=== PATIENT | female | born 1995 | race Caucasian/White ===

== ENCOUNTER 2022-05-12 09:45 | Inpatient (IN) ==
[2022-05-12] MEDS ORDERED: OXYTOCIN 30 UNITS/500 ML BAG IV PRN ×2 (10:51)
[2022-05-12] MEDS ORDERED: LIDOCAINE 1% LOCAL 20 ML VIAL INFIL PRN (10:51)
--- NOTE | 2022-05-12 10:58 | History & Physical Report ---
Date of Service May 12, 2022 Assessment & Plan (1) SROM (spontaneous rupture of membranes): Plan: IOL with pitocin recommended, epidural discussed and will likely be requested by patient during her labor. BP noted with diastolic >90. No PIH symptoms at present, but has had mild shah within the last few days (didn't even want to take tylenol for it), and has +1 protein in urine (though this is likely d/t urine being mixed with amniotic fluid and vernix). Will check CMP along with intake labs to assess for preeclampsia and will watch for symptoms. Anticipate BP is likely related to excitement/discomfort rather than preeclampsia given overall clinical scenario and will not diagnose with any gHTN spectrum condition at this time. History of Present Illness Primary Care Provider: Elbert Lopez, DO 27yo at 40w with SROM at 2am, without any contractions. Trickle of red blood this AM while in shower, also noticing at that time she was feeling reduced FM. Called the o/c MD after that / at 8:45. Advised to come to L&D. Preg c/b Rh negative, did accept Rhogam. Declines all vaccines and declined optional /genetic testing. On presentation, continues with leakage, no ctx, minimal VB. SROM confirmed by nursing. FHT reassuring. Irregular ctx on toco that are mild and not bothering the patient. Exam /-1 soft posterior with clear LOF per this MD. Allergies Allergy/AdvReac Type Severity Reaction Status Date / Time caffeine Allergy Depression Verified 05/12/22 10:17 Home Medications Medication Instructions Recorded Confirmed Type prenat.vits,avelina,oly-iggt-qfeft 1 tab PO HS 05/12/22 05/12/22 History Past Med/Surg History Surgical History H/O hernia repair S/P wisdom tooth extraction Family History Grandmother (Maternal) Breast cancer Other Diabetes Social History (Updated 09/27/21 @ 09:50 by Magalie Yarbrough) Smoking Status: Never smoker Hx Alcohol Use: No Hx Substance Use: No Preferred Language: Syriac Communication Ability: Effective Visual Impairment: No Limitations Hearing Ability: Normal Licensed Tax Consultant Required: No Beliefs That Will Affect Care: None marital status: marital status details: Pancho (27) [phone] Current Living Situation: Spouse Current Living Situation Comment: lives with spouse, no pets. current occupational status: unemployed Other Information That Helps Us Care for You: No Feels Safe at Home: Yes Safety Concerns: Feels Safe At This Time Childhood Exposure to Second-Hand Smoke: No Dental Care, Regularly: Yes Physical Activity Frequency: Daily Seatbelt Use: always Sunscreen Use: Yes Assistive Devices: None Physical Exam Constitutional: WD/WN, vitals as above Eyes: PERRL, conjunctivae normal, anicteric sclerae ENMT: external ear and nose normal, oropharynx normal Neck: supple Respiratory: normal respiratory effort and able to speak in complete sentences; no respiratory distress Cardiovascular: Rate/Rhythm: regular rate and regular rhythm Gastrointestinal (Abdomen): Gravid / AGA, nontender Musculoskeletal: no cyanosis or clubbing, extremities motor strength 5/5 Skin: no rashes, warm and dry Psychiatric: A+Ox3, euthymic affect Genitourinary: Speculum/Bimanual Exam: no vaginal lesions, no vaginal bleeding and uterus nontender OB Exam Abdomen: + vertex, + estimated weight (7) and + irregular contractions Manual OB Exam: + cervical dilation 1 cm, + cervical effacement 80%, + station -1 and + amniotic fluid clear OB Exam Monitor Tracing: + external FHT monitor used, + external uterine monitor used and + category I Results & Data Results & Data ([facility]) Vital Signs (Past 12 Hours) Vital Signs Temp Pulse Resp BP 05/12/22 10:00 98.6 F 20 05/12/22 10:16 94 H 05/12/22 10:16 131/96 05/12/22 09:52 109 H 139/92 PG Care Time/CCT Total # of Minutes Spent Total Time Spent with Patient: Total time spent is greater than 50% in coordination of care (as documented) at patient's floor/unit and/or counseling patient: Coding Level of Care Code None Diagnoses SROM (spontaneous rupture of membranes)
[2022-05-12 11:32] LABS: Hematocrit (blood only) 33.2 % (34.1-44.9); Hemoglobin 11.4 g/dl (12.0-16.0); Mean Corpuscular Hemoglobin 30.7 pg (25.0-34.0); Mean Corpuscular Hgb Conc 34.3 g/dL (32.0-36.0); Mean Corpuscular Volume 89.5 fL (80.0-100.0); Mean Platelet Volume 11.1 fL (9.4-12.3); Platelet Count 164 K/uL (130-400); RDW Coefficient of Variation 14.8 % (11.5-14.5); Red Blood Count 3.71 M/uL (3.93-5.22); White Blood Count 7.44 K/ul (4.8-10.8)
[2022-05-12] MEDS: LACTATED RINGER'S 1,000 ML IV PRN ×2 (11:43→15:52)
[2022-05-12 11:51] LABS: Albumin Globulin Ratio 1.1 (0.9-2); Albumin Level 3.3 gm/dl (3.4-5.0); Bilirubin,Total 0.3 mg/dl (0.2-1.0); Calcium 8.9 mg/dl (8.5-10.1); Est GFR (African American) 136.3 ml/min; Est GFR (Non-African American) 117.6 ml/min; Globulin 2.9 gm/dl (2.5-4.0); Potassium 4.4 mmol/L (3.5-5.1); Total Protein 6.2 gm/dl (6.0-8.3)
[2022-05-12] MEDS ORDERED: SODIUM CHLORIDE 0.9% INJ 10 ML VIAL ONE (15:32)
[2022-05-12] MEDS ORDERED: ePHEDrine sulfate 50 MG/ML AMP ONE (15:32)
[2022-05-12] MEDS ORDERED: fentaNYL citrate 100 MCG/2 ML VIAL ONE (15:32)
[2022-05-12] MEDS ORDERED: fentaNYL 2MCG/ML ROPIVACAINE 1.25MG/ML 100 ML BAG EPI ONE (15:33)
[2022-05-12] MEDS ORDERED: BUPIVACAINE 0.25% 30 ML VIAL ONE (15:33)
[2022-05-12] MEDS ORDERED: LIDOCAINE 2%/EPINEPHRINE 1:200,000 20 ML SDV ONE (15:33)
--- NOTE | 2022-05-12 18:20 | Anesthesia Procedure Note ---
Date of Service May 12, 2022 Anesthesia Post Epidural Note Vital Signs Vital Signs: Temp Pulse Resp BP Pulse Ox 36.8 C 97 H 20 129/83 100 05/12/22 15:47 05/12/22 18:15 05/12/22 18:00 05/12/22 18:15 05/12/22 17:21 Notes Mental Status: alert / awake / arousable Nausea / Vomiting: adequately controlled Pain: adequately controlled Airway Patency, RR, SpO2: stable & adequate BP & HR: stable & adequate Hydration State: stable & adequate Neuraxial Anesthesia: was administered and sensory block is resolving Anesthetic Complications: no major complications apparent and Pt Satisfied with anesthetic care Epidural: Removed without complications and With tip intact
--- NOTE | 2022-05-12 18:32 | Delivery Summary ---
Vaginal Delivery Summary Date of Service May 12, 2022 Vaginal Delivery Summary DIAGNOSES: 1. Yadav intrauterine at 40w gestation. 2. SROM with Induction of labor. 3. Group B Streptococcus Neg. PROCEDURE: Spontaneous vaginal delivery and repair of complex vaginal and 3rd degree laceration. SURGEON: Esther Mathis MD. PATHOLOGY LABORATORY TECHNOLOGIST: None. ESTIMATED BLOOD LOSS: 500 mL. COMPLICATIONS: None. PLACENTA: Spontaneous and intact with a 3-vessel cord. DISPOSITION: Stable to labor and delivery. DESCRIPTION: The patient pushed well and brought the head to in DOA position. She pushed only 5 times despite this being her first . The infant's head delivered suddenly, from an early stage, in a single push with a dramatic giving-way of the perineal tissues. There was no nuchal cord. The shoulders and body delivered without any difficulty, and the was placed on the maternal abdomen. It was vigorous and moving all extremities, and making respiratory efforts. The cord was doubly clamped by the MD and then cut by the FOB. The placenta delivered spontaneously and was noted to be intact and with a 3VC. The cervix, vagina and perineum were examined and were found to have a complex posterior vaginal laceration with short bilateral sulcal lacerations, and a complete interruption of the anal sphincter. Repair was undertaken with an assistant hvac mechanic gloved to provide retraction and laparotomy sponges added to the field with which to pack the cervix back, as this tended to prolapse down to the hymenal ring. The anal sphincter was reapproximated with multiple figure of eight sutures of 0-vicryl. The sulcal lacerations were closed in running locked manner using 3-0 vicryl. The posterior vaginal laceration was closed using 3-0 vicryl as well. A crown stitch of 2-0 vicryl was used to reapproximate the perineal body, and a 3-0 vicryl was used in running locked fashion to close the perineal skin down to and including the anal verge. The rectum was examined and found to be free of lacerations and/or sutures. The fundus was firm and lochia minimal immediately after delivery, and counts including all added instruments and laparotomy sponges was complete. EBL including mostly losses from the lacerations is estimated at 500cc. [facility] Vaginal Delivery Charge Vaginal Delivery Codes: 86796 global code for the antepartum, delivery, and post-
[2022-05-12] MEDS ORDERED: BENZOCAINE 20% AER SPR 82.5 GM CAN EXT ONE (19:14)
[2022-05-12] MEDS ORDERED: IBUPROFEN 600 MG TAB PO ONE (19:14)
[2022-05-12] MEDS ORDERED: BENZOCAINE 20% AER SPR 82.5 GM CAN EXT PRN (19:34)
[2022-05-12] MEDS ORDERED: HYDROCORTISONE ACETATE 25 MG SUPP PR PRN (19:34)
[2022-05-12] MEDS ORDERED: DIPHTHERIA/TETANUS/PERTUSSIS 0.5mL SYR/VIAL (Age 7+yrs) IM ONE (19:34)
[2022-05-12] MEDS ORDERED: bisacodyL 10 MG SUPP PR PRN (19:34)
[2022-05-12] MEDS ORDERED: ACETAMINOPHEN 325 MG TAB PO PRN (19:34)
[2022-05-12] MEDS: DOCUSATE SODIUM 100 MG CAP PO SCH (22:25)
[2022-05-12] MEDS: IBUPROFEN 600 MG TAB PO PRN (23:43)
[2022-05-13] MEDS: IBUPROFEN 600 MG TAB PO PRN ×2 (04:09→11:39)
[2022-05-13 06:33] LABS: Hematocrit (blood only) 26.3 % (34.1-44.9); Hemoglobin 8.9 g/dl (12.0-16.0); Mean Corpuscular Hemoglobin 29.9 pg (25.0-34.0); Mean Corpuscular Hgb Conc 33.8 g/dL (32.0-36.0); Mean Corpuscular Volume 88.3 fL (80.0-100.0); Mean Platelet Volume 10.9 fL (9.4-12.3); Platelet Count 131 K/uL (130-400); RDW Coefficient of Variation 15.1 % (11.5-14.5); Red Blood Count 2.98 M/uL (3.93-5.22); White Blood Count 11.47 K/ul (4.8-10.8)
[2022-05-13] MEDS: oxyCODONE/ACETAMINOPHEN 5mg/325mg TAB PO PRN ×2 (07:15→18:41)
--- NOTE | 2022-05-13 07:16 | Obstetrical Progress Note ---
Date of Service May 13, 2022 Assessment & Plan (1) state: Patient recovering well. Hgb drop not unexpected given complex lac with significant losses during repair. Will stay today for pain management and help with first baby. is going really well per patient. Had complete 3rd degree and is on stool softeners, passing gas but awaiting BM. Subjective Ambulation: ambulating normally Voiding: no voiding problems Passing Gas:: Yes (No BM yet but is on stool softener as Rx'ed) Diet Tolerance:: regular diet Lochia:: Small Feeding Type:: breast feeding Physical Exam Constitutional WD/WN, vitals as above Eyes PERRL, conjunctivae normal, anicteric sclerae Neck normal visual inspection Respiratory normal respiratory effort and able to speak in complete sentences; no resp iratory distress and no labored breathing Cardiovascular Rate/Rhythm: regular rate and regular rhythm Extremities: no edema Chest (Breasts) Chest: normal inspection of chest Gastrointestinal (Abdomen) Inspection/Auscultation: abdomen normal to inspection Soft, postgravid Psychiatric A+Ox3, euthymic affect Genitourinary OB Exam Abdomen: + fundal height Fundus: + firm and + relation to umbilicus (fundus just below umbilicus); not tender Results & Data ([facility]) Vital Signs (Past 12 Hours) Vital Signs Temp Pulse Pulse Resp BP BP Pulse Ox 05/13/22 03:50 98.1 F 95 H 16 123/87 98 05/13/22 00:10 124/79 05/12/22 21:00 98.2 F 106 H 18 127/83 05/12/22 23:45 98.1 F 96 H 18 143/98 H 97 05/12/22 20:06 106 H 05/12/22 20:06 127/83 05/12/22 20:00 114 H 05/12/22 20:00 122/83 05/12/22 19:45 99 H 05/12/22 19:45 118/80 05/12/22 19:30 116 H 05/12/22 19:30 125/84 05/12/22 19:15 90 05/12/22 19:15 122/74 O2 Del Method 05/13/22 03:50 Room Air 05/13/22 00:10 05/12/22 21:00 Room Air 05/12/22 23:45 Room Air 05/12/22 20:06 05/12/22 20:06 05/12/22 20:00 05/12/22 20:00 05/12/22 19:45 05/12/22 19:45 05/12/22 19:30 05/12/22 19:30 05/12/22 19:15 05/12/22 19:15
[2022-05-13] MEDS: PRENATAL VITAMIN 1 TAB PO SCH (08:54)
[2022-05-13] MEDS: DOCUSATE SODIUM 100 MG CAP PO SCH ×2 (08:54→19:59)
[2022-05-13] MEDS ORDERED: bisacodyL 5 MG TABEC PO SCH (20:00)
--- NOTE | 2022-05-14 06:53 | Obstetrical Progress Note ---
Date of Service May 14, 2022 Assessment & Plan (1) state: day #1 patient is doing well no extremity pain or bleeding is minimal no depression patient wishes discharge this is reasonable Subjective Ambulation: ambulating normally Voiding: no voiding problems Passing Gas:: Yes Diet Tolerance:: regular diet Lochia:: Small Constitutional: + as per Subjective / HPI Physical Exam Constitutional WD/WN, vitals as above well developed and well nourished Respiratory normal respiratory effort, lungs clear to auscultation normal respiratory effort Cardiovascular RRR, no murmur, no edema Gastrointestinal (Abdomen) normal bowel sounds, soft, nontender, no hepatosplenomegaly Results & Data ([facility]) Vital Signs (Past 12 Hours) Vital Signs Temp Pulse Pulse Resp BP Pulse Ox O2 Del Method 05/14/22 01:00 98.1 F 99 H 18 116/78 99 Room Air 05/13/22 20:00 98.2 F 109 H 18 122/79
[2022-05-14 07:08] LABS: Hemoglobin 8.3 g/dl (12.0-16.0)
[2022-05-14] MEDS: IBUPROFEN 600 MG TAB PO PRN ×2 (08:10→12:40)
[2022-05-14] MEDS: PRENATAL VITAMIN 1 TAB PO SCH (08:11)
[2022-05-14] MEDS: DOCUSATE SODIUM 100 MG CAP PO SCH (08:11)
== END 2022-05-14 12:49 | disposition home or self-care (01) | DRG 768 ==
LOC: OPB 09:45 → 4S1 09:47 → 4E2 20:57